=== PATIENT | female | born 1955 | race Caucasian/White ===

== ENCOUNTER → 2018-04-20 | Day surgery (SDC) | payer BC ==
[~2018-04-20] MED LIST: CLONAZEPAM0.5 MG PO; FENTANYL CITRATE/PF 100MCG/2 ML INJ ONE; GABAPENTIN300 MG PO; GLYCOPYRROLATE INJ 1MG/ 5 ML SYR ONE; LAMICTAL200 MG PO; LIDOCAINE HCL 2% LOCAL INJ 5 ML SDV VIAL INJ ONE; LISINOPRIL10 MG PO; METOPROLOL TART50 MG PO; MIDAZOLAM HCL 2 MG/2 ML VIAL ONE; PANTOPRAZOLE 40 MG 10ML VIAL ONE; PROPOFOL IV EMULSION 10 MG/ML 50 ML VIAL ONE
--- OUTSIDE RECORDS SUMMARY | 2018-04-20 07:46 | XMS REPORT | Clinical Summary ---
Author Author [facility] Organization [facility] Address Unknown Phone Unavailable Care Team Providers Care Chief Deputy Name Role Phone Ray Mccollum MD PCP Allergies No Known Allergies Medications End Date Status Medication Sig Dispensed Refills Start Date Active metoprolol tartrate Take 50 mg by 1 (LOPRESSOR) 50 mg tablet mouth 2 (two) 7 times a day. Active lamoTRIgine (LaMICtal) 0 100 MG tablet 8 Active gabapentin (NEURONTIN) Take 300 mg 1 300 mg capsule by mouth 8 nightly. Active dicyclomine (BENTYL) 10 Take 10 mg by 3 MG capsule mouth 3 7 (three) times a day. Active clonAZEPAM (KlonoPIN) 0.5 Take 0.5 mg 2 MG tablet by mouth 8 nightly. Active Problems No known active problems Encounters Care Team Description Date Type Specialty Jeb Hernandez Encounter for breast cancer screening other than mammogram (Primary Dx); Postmenopausal 05/20/2017 Orders Only Obstetrics and Gynecology Jeb Hernandez 05/18/2017 Telephone Obstetrics and Gynecology Alicja Diez MD Pap smear, low-risk (Primary Dx); Screening mammogram, encounter for; Wellness examination 04/26/2017 Office Visit Obstetrics and Gynecology after 04/19/2017 Social History Date Tobacco Use Types Packs/Day Years Used Never Assessed Sex Assigned at Date Recorded Not on file Industry Job Start Date Occupation Not on file Not on file Not on file Travel End Travel History Travel Start No recent travel history available. Last Filed Vital Signs Time Taken Vital Sign Reading 04/26/2017 10:59 AM [employer] Blood Pressure 122/86 04/26/2017 10:59 AM [employer] Pulse 91 04/26/2017 10:59 AM [employer] Temperature 36.7 C (98 F) - Respiratory Rate - - Oxygen Saturation - - Inhaled Oxygen - Concentration 04/26/2017 10:59 AM [employer] Weight 86.8 kg (191 lb 6.4 oz) - Height - - Body Mass Index - Plan of Treatment Health Maintenance Due Date Last Done Comments CERVICAL CANCER SCREENING 01/03/1977 BREAST CANCER SCREENING 01/03/2006 COLON CANCER SCREENING 01/03/2006 SHINGLES VACCINES (1 of 01/03/2006 2) INFLUENZA VACCINE 09/29/2017 Procedures Comments Procedure Name Priority Date/Time Associated Diagnosis PAP IG, RFX HPV ASCU Routine 04/26/2017 Pap smear, low-risk 11:10 AM [employer] after 04/19/2017 Results * Pap IG, rfx HPV ASCU (04/26/2017 11:10 AM [employer]) Diagnosis CommentComment: NEGATIVE FOR [facility] INTRAEPITHELIAL LESION AND MALIGNANCY. Specimen adequacy Comment [facility] Comment: Satisfactory for evaluation.Endocervical and/or squamous metaplastic cells (endocervical component) are present. Clinician provided ICD10 CommentComment: Z01.419 [facility] Performed by: CommentComment: Clara Dickerson, [facility] Certified Technician (ASCP) Comment . [facility] Note: Comment [facility] Comment: The Pap smear is a screening test designed to aid in the detection of premalignant and malignant conditions of the uterine cervix.It is not a diagnostic procedure and should not be used as the sole means of detecting cervical cancer.Both false-positive and false-negative reports do occur. Test methodology Comment [facility] Comment: This liquid based ThinPrep(R) pap test was screened with the use of an image guided system. Reflex Comment [facility] Comment: The HPV DNA reflex criteria were not met with this specimen result therefore, no HPV testing was performed. Specimen Cervical Narrative Performed At Performed at:01 - [facility] [address] [facility], [id number] Home Health Cna: Rebecca Spain MD, Phone:[phone] Specimen Comment: No. of containers..01 ThinPrep Vial Performing Organization Address City/State/Zipcode Phone Number [facility] after 04/19/2017 Insurance Payer Benefit Subscriber ID Type Phone Address Plan / Group [facility] xxxxxxxxx PPO [employer] HMO/POS/PP O Advance Directives Patient has advance care planning documents on file. For more information, leonardo e contact: Brian Blackwood [address] [place] [address]
[2018-04-20 10:24] VITALS: BP 87/88
--- NOTE | 2018-04-22 08:42 | Operative Report ---
DATE OF PROCEDURE: 04/20/2018 SURGEON: Lele Daniel MD PROCEDURE: EGD with esophageal dilatation and biopsies. INDICATION FOR ESOPHAGOGASTRODUODENOSCOPY: Dysphagia, heartburn, bloating. MEDICATIONS: The patient was on MAC. Please see anesthesiologist's note. PROCEDURE IN DETAIL: With the patient in left lateral decubitus position, a flexible fiberoptic Olympus gastroscope was introduced into the esophagus under direct visualization without any difficulty. There was some patchy erythema noted in distal esophagus. A minute tongue of velvety red mucosa was noted to extend proximally from the GE junction that was biopsied to rule out Tejeda's. A mild stricture was noted at the GE junction that was dilated to size 52-Samoan Gonzalez. The scope was then advanced with ease into the stomach. Mucosa overlying the antrum and the body revealed some patchy erythema and [id number] edema and biopsies were obtained and sent to stain for H. pylori. Pylorus appeared to be of normal contour and shape, was intubated with ease and the scope was advanced all the way to the second portion of the duodenum. Biopsies were obtained from the proximal second portion to rule out sprue. Biopsies were also obtained from the duodenal bulb. The scope was then withdrawn back into the stomach and retroflexed. Mucosa overlying the fundus and the cardia appeared to be within normal limits. The scope was then straightened out. The stomach was decompressed. The scope was subsequently withdrawn. The patient tolerated the procedure well. IMPRESSION: 1. Distal esophagitis, mild. 2. Rule out Tejeda esophagus. 3. Esophageal stricture, GE junction dilated to size 52-Samoan Gonzalez. 4. Gastritis, biopsied. Biopsies sent to stain for H. pylori. 5. Rule out sprue. PLAN: Follow up pathology. Initiate Protonix 40 mg 1 p.o. q.a.m. before meal. Lele Daniel MD [facility] [place] /[id number] cc: Ray Mccollum MD
== END | disposition home or self-care (01) ==
LOC: OR 07:24
PROVIDERS: ATTEND Internal Medicine Gastroenterology
DX: K22.2 Esophageal obstruction (principal); K21.0 Gastro-esophageal reflux disease with esophagitis; K29.50 Unspecified chronic gastritis without bleeding; I10 Essential (primary) hypertension; Z01.810 Encounter for preprocedural cardiovascular examination; F41.9 Anxiety disorder, unspecified; F31.9 Bipolar disorder, unspecified
CPT/HCPCS: 43239; 43450; 93005; C9113; J2001; J2250; J2704; J3490

== ENCOUNTER → 2021-07-17 | Day surgery (SDC) | payer OTHER ==
[2021-07-14 11:56] LABS: BASOPHILS # (AUTO) 0.1 (0.0-0.1); BASOPHILS % 1.2 % (0.0-1.0); EOSINOPHILS # (AUTO) 0.4 (0.0-0.4); EOSINOPHILS % 4.2 % (0.0-6.0); HEMATOCRIT 39.8 % (34.2-44.1); HEMOGLOBIN 12.6 g/dL (12.0-16.0); LYMPHOCYTES # (AUTO) 3.8 (1.0-3.2); MEAN CORPUSCULAR HEMOGLOBIN 28.3 pg (28-32); MEAN CORPUSCULAR HGB CONC 31.7 g/dL (31-35); MEAN CORPUSCULAR VOLUME 89.4 fL (81-99); MONOCYTES % 9.9 % (4.4-11.3); NEUTROPHILS # (AUTO) 4.8 (2.1-6.9); NEUTROPHILS % 47.2 % (38.7-80.0); PLATELET COUNT 290 x10e3/uL (140-360); RED BLOOD COUNT 4.45 x10e6/uL (3.6-5.1); RED CELL DISTRIBUTION WIDTH 16.3 % (11.7-14.4)
[~2021-07-17] MED LIST changes: -GLYCOPYRROLATE INJ 1MG/ 5 ML SYR ONE; +HYOSCYAMINE SULFATE 0.5 MG/ML INJ ONE; +LEVOTHYROXINE50 MCG PO; -LIDOCAINE HCL 2% LOCAL INJ 5 ML SDV VIAL INJ ONE; +MELOXICAM7.5 MG PO; -PANTOPRAZOLE 40 MG 10ML VIAL ONE; +PROPOFOL IV EMULSION 10 MG/ML 20 ML VIAL ONE; -PROPOFOL IV EMULSION 10 MG/ML 50 ML VIAL ONE; +SERTRALINE HCL50 MG PO
[2021-07-17 09:28] VITALS: BP 117/78
[2021-07-17 13:50] LABS: C DIFFICILE TOXIN A&B AMP PROB NEGATIVE (NEGATIVE); WBC,FECAL (FECAL LACTOFERRIN) NEGATIVE (NEGATIVE)
== END | disposition home or self-care (01) ==
LOC: OR 07:09
PROVIDERS: ATTEND Internal Medicine Gastroenterology
DX: K52.9 Noninfective gastroenteritis and colitis, unspecified (principal); K62.89 Other specified diseases of anus and rectum; K57.30 Diverticulosis of large intestine without perforation or abscess without bleeding; K64.8 Other hemorrhoids; Z71.3 Dietary counseling and surveillance; I10 Essential (primary) hypertension; E03.9 Hypothyroidism, unspecified; F31.9 Bipolar disorder, unspecified; F41.9 Anxiety disorder, unspecified; Z71.89 Other specified counseling; Z88.2 Allergy status to sulfonamides; Z01.810 Encounter for preprocedural cardiovascular examination; Z01.812 Encounter for preprocedural laboratory examination; Z79.899 Other long term (current) drug therapy; Z68.39 Body mass index [BMI] 39.0-39.9, adult
CPT/HCPCS: 36415 ×2; 45380; 83630; 83993; 85025; 85651; 86141; 86256; 86671; 87045; 87177; 87328; 87493; 93005; J1980; J2250; J2704; J3010; 45378

== ENCOUNTER 2024-09-29 08:51 | Outpatient (RCR) | payer MEDICARE ==
[~2024-09-29 08:51] MED LIST changes: -FENTANYL CITRATE/PF 100MCG/2 ML INJ ONE; -HYOSCYAMINE SULFATE 0.5 MG/ML INJ ONE; -MIDAZOLAM HCL 2 MG/2 ML VIAL ONE; -PROPOFOL IV EMULSION 10 MG/ML 20 ML VIAL ONE
== END 2024-10-29 ==
LOC: OT 08:51
PROVIDERS: ATTEND Plastic Surgery
DX: M13.842 Other specified arthritis, left hand (principal)
CPT/HCPCS: 97535; L3913